=== PATIENT | female | born 1955 | race Caucasian/White ===

== ENCOUNTER 2017-09-09 14:56 | Emergency (ER) | payer OTHER ==
[2017-09-09 15:34] VITALS: BP 173/87
--- NOTE | 2017-09-09 16:07 | UC ---
Bite Injury/Animal HPI - HPI Summary HPI Summary: Patient presents s/p spider bites of the lower extremities of both calves, she presents with redness, swelling and warmth of which are circular in pattern with a puncture wound in the center. Patient denies tick bites, states she has had spider bites before. She complains of discomfort at the site, denies fever, chills, nausea or vomiting. Reports today she did have a generalized feeling of fatigue. Denies joint pain. - History of Current Complaint Chief Complaint: UCSkin Stated Complaint: BUG BITE Time Seen by Provider: 09/09/17 15:47 Hx Obtained From: Patient Hx Last Menstrual Period: 2006 ?: No Severity Currently: Mild Severity Initially: Moderate Onset/Duration: Gradual Onset, Lasting Hours Aggravating Factor(s): Other - palpation Alleviating Factor(s): Other - claritin Animal Available for Observation: No Animal Control Notified: No - Risk Factors Infection/Sepsis Risk Factors: Negative - Allergies/Home Medications Allergies/Adverse Reactions: Allergies Allergy/AdvReac Type Severity Reaction Status Date / Time Erythromycin Allergy Intermediate Rash Verified 09/09/17 15:34 Ibuprofen AdvReac Intermediate STOMACH Verified 09/09/17 15:34 UPSET seasonal Allergy Congestion Uncoded 11/06/15 10:12 PMH/Surg Hx/FS Hx/Imm Hx Previously Healthy: Yes - Surgical History Surgical History: Yes Surgery Procedure, Year, and Place: Tubal Ligation, 1983, [facility]. Cholecystectomy , 1999, [facility]. Right Shoulder Decompression, 2011, [facility] - Family History Known Family History: Positive: Other - thyroid issues ( mother) - Social History Occupation: Employed Full-time Lives: Alone Alcohol Use: None Substance Use Type: None Smoking Status (MU): Never Smoked Tobacco Have You Smoked in the Last Year: No When Did the Patient Quit Smoking/Using Tobacco: high school years - Immunization History Most Recent Tetanus Shot: SPRING 2013 Review of Systems Constitutional: Negative Skin: Other - two bites left calf one bite right calf Eyes: Negative ENT: Negative Respiratory: Negative Cardiovascular: Negative Gastrointestinal: Negative Genitourinary: Negative Motor: Negative Neurovascular: Negative Musculoskeletal: Negative All Other Systems Reviewed And Are Negative: Yes Physical Exam Triage Information Reviewed: Yes Appearance: Well-Appearing Vital Signs: Initial Vital Signs Temp 98.6 F 09/09/17 15:28 Pulse 94 09/09/17 15:28 Resp 20 09/09/17 15:28 BP 173/87 09/09/17 15:28 Pulse Ox 99 09/09/17 15:28 Vital Signs Reviewed: Yes Eye Exam: Normal ENT Exam: Normal Neck exam: Normal Neck: Positive: 1 Respiratory Exam: Normal Cardiovascular Exam: Normal Abdominal Exam: Normal Musculoskeletal Exam: Normal Neurological Exam: Normal Psychological Exam: Normal Skin Exam: Normal - left calf two circular erythmic areas with puncture wound at center. measuring 10 cm each. right calf one circular erythemis area with puncture wound at center, measuring 8 cm., Other Bite Injury Course/Dx - Course Course Of Treatment: Patient presents s/p what she states were spider bites, she was treated with keflex 500 mg qid x 10 days. I also recommend topical benedryl spray for relief of the histamine responce. I also discussed with her that if her symptoms get worse to go to the emergency department. - Differential Dx/Diagnosis Differential Diagnosis/HQI/PQRI: Other - inset bites cellulitis Provider Diagnoses: insect bites. cellulitis Discharge - Discharge Plan Condition: Stable Disposition: HOME Prescriptions: Cephalexin CAP* [Keflex CAP*] 500 mg PO QID #40 cap Patient Education Materials: Insect Bite or Sting (ED) Referrals: Jama WALKER,Jamal Perez [Primary Care Provider] - Additional Instructions: If your symptoms get worse go directly to the emergency department.
== END 2017-09-09 16:10 | disposition home or self-care (01) ==
LOC: UCEAST 14:56
DX: T14.8XXA Other injury of unspecified body region, initial encounter (principal); W57.XXXA Bitten or stung by nonvenomous insect and other nonvenomous arthropods, initial encounter; Y92.9 Unspecified place or not applicable
CPT/HCPCS: 99212; G0463

== ENCOUNTER 2017-12-07 09:50 | Emergency (ER) | payer OTHER ==
[2017-12-07] MEDS ORDERED: Lidocaine 2% VISCOUS* 15 ML UDC PO ONE (11:07)
[2017-12-07] MEDS ORDERED: Al Hydrox/Mg Hydrox/Simet LIQ* 30 ML UDC PO ONE (11:07)
--- NOTE | 2017-12-07 11:57 | UC ---
Sherie Henderson Abhishek, scribed for Nikki Sweet MD on 12/07/17 at 1100 . Abdominal Pain Female HPI - HPI Summary HPI Summary: This patient is a 62 year old F presenting to [facility] with a chief complaint of abd pain, epigastric. Pt states sx started after drinking coffee this am. No po. The pt describes the chief complaint as similar to acid reflux. Pt currently takes zantac and has previously had a prescription for lidocaine and Maalox. Pt states she is out of both of these medications and has not gotten more. pt states sx feels the same as previous. Mild nausea. No vomiting. No fevers, chills, rash. No cp. no LEPE. The patient rates the pain 7/10 in severity. Symptoms alleviated by nothing - nothing taken. Pt reports belching and bitter taste in mouth. No sob, no cp. pt has been declining endoscopy. Pt's medications reviewed this visit - History of Current Complaint Chief Complaint: UCAbdominalPain Stated Complaint: ABDOMINAL PAIN, HIGH BLOOD PRESSURE Hx Obtained From: Patient Onset/Duration: Gradual Onset, Still Present Severity Initially: Moderate Severity Currently: Moderate Pain Intensity: 7 Pain Scale Used: 0-10 Numeric Location: Epigastric - mid epigastric Character: Burning, Other - "acid reflux" and belching Aggravating Factor(s): Food - coffee Alleviating Factor(s): Nothing Associated Signs and Symptoms: Negative: Diaphoresis, Nausea Allergies/Adverse Reactions: Allergies Allergy/AdvReac Type Severity Reaction Status Date / Time Erythromycin Allergy Intermediate Rash Verified 12/07/17 10:32 Ibuprofen AdvReac Intermediate STOMACH Verified 12/07/17 10:32 UPSET seasonal Allergy Congestion Uncoded 12/07/17 10:32 PMH/Surg Hx/FS Hx/Imm Hx Previously Healthy: Yes GI/ History: Gastroesophageal Reflux - Surgical History Surgical History: Yes Surgery Procedure, Year, and Place: Tubal Ligation, 1983, [facility]. Cholecystectomy , 1999, [facility]. [place] [facility] - Family History Known Family History: Positive: Cardiac Disease - "Blood clots", Other - thyroid issues ( mother) - Social History Occupation: Employed Full-time - [employer] Alcohol Use: None Substance Use Type: None Smoking Status (MU): Never Smoked Tobacco Have You Smoked in the Last Year: No When Did the Patient Quit Smoking/Using Tobacco: high school years - Immunization History Most Recent Influenza Vaccination: 09/13 Most Recent Tetanus Shot: SPRING 2013 Review of Systems Constitutional: Negative - Negative diaphoresis Skin: Negative Eyes: Negative ENT: Negative Respiratory: Negative Cardiovascular: Other - hypertension Gastrointestinal: Negative - Negative Nausea, Abdominal Pain - mid epigastric pain ("belching" and "acid reflux") Genitourinary: Negative Motor: Negative Neurovascular: Negative Musculoskeletal: Negative Neurological: Negative Psychological: Negative All Other Systems Reviewed And Are Negative: Yes Physical Exam Triage Information Reviewed: Yes Appearance: Well-Appearing, No Pain Distress, Well-Nourished Vital Signs: Initial Vital Signs Temp 98.6 F 12/07/17 10:32 Pulse 106 12/07/17 10:32 Resp 16 12/07/17 10:32 BP 173/91 12/07/17 10:32 Pulse Ox 99 12/07/17 10:32 Vital Signs Reviewed: Yes Eye Exam: Normal Eyes: Positive: Conjunctiva Clear ENT Exam: Normal ENT: Positive: Normal ENT inspection, Hearing grossly normal, Pharynx normal Dental Exam: Normal Neck exam: Normal Neck: Positive: Supple, Nontender, No Lymphadenopathy Respiratory Exam: Normal Respiratory: Positive: Chest non-tender, Lungs clear, Normal breath sounds, No respiratory distress, No accessory muscle use Cardiovascular Exam: Normal Cardiovascular: Positive: RRR, No Murmur, Pulses Normal Abdominal Exam: Normal Abdomen Description: Positive: No Organomegaly, Other: - mild epigastric pain with deep palp. no guarding, no rebound abd soft +BS. Negative: Nontender Bowel Sounds: Positive: Present Musculoskeletal Exam: Normal Neurological Exam: Normal Neurological: Positive: Alert Psychological Exam: Normal Skin Exam: Normal Diagnostics - EKG Cardiac Rate: NL Cardiac Rhythm: Sinus: New - EKG taken 1045: 100 bpm; No change compared to ST Segment: Normal Re-Evaluation - Re-Evaluation First Eval Change: Improved - Pt states pain nearly resolved following GI cocktai and po crackers will Rx zantac and maalox/lidocaine recommend f/u with [facility] return precautions with any recurrence, increase in intensity or other concerns 911 or ED - pt comfortable and in agreement with plan Abd Pain Female Course/Dx - Course Course Of Treatment: pt with elevated BP. pt with a h/o BP. recommend f/u with PCP. Pt with h/o GERD. Pt is out of routine meds. Pt drank coffee without po. EKG non concerning. Will give GI cocktail and reasses - Differential Dx/Diagnosis Provider Diagnoses: GERD Discharge - Discharge Plan Condition: Stable Disposition: HOME Prescriptions: Magic Mouth Was-ILANA/MAAL/LIDO* 10 ml SWISH SWAL Q8HR #150 ml Ranitidine HCl [Zantac 150 Maximum Streng] 150 mg PO DAILY #30 tab Patient Education Materials: Gastroesophageal Reflux Disease (ED) Referrals: Mikki Flores MD [Primary Care Provider] - Additional Instructions: - Stay well hydrated. Drink plenty of non-alcoholic, non-caffinated beverages - Eat and drink regular, healthy meals - Eat small portions several times a day. Avoid spicy food, acidic food, tomato based foods - Take zantac daily take Maalox every 8 hours as needed - Contact your doctor to at [facility] to schedule a follow-up appointment. Contact [facility], 911, or go to the ED with increased pain, shortness of breath, sweating, lightheadedness or any other questions or concerns The documentation as recorded by the Sherie trujillo Abhishek accurately reflects the service I personally performed and the decisions made by me, Nikki Sweet MD.
[2017-12-07 12:10] VITALS: BP 172/98
== END 2017-12-07 12:14 | disposition home or self-care (01) ==
LOC: UCEAST 09:50
DX: K21.9 Gastro-esophageal reflux disease without esophagitis (principal); Z88.3 Allergy status to other anti-infective agents
CPT/HCPCS: 93005; 99212; A9270-GY; G0463